=== PATIENT | male | born 1950 | race American Indian/Alaskan Native ===

== ENCOUNTER 2017-03-02 11:08 | Emergency (ER) | payer OTHER ==
[2017-03-02 11:24] VITALS: BP 144/89
[2017-03-02 11:58] LABS: Bilirubin,Urine NEG (Negative)
[2017-03-02 11:59] LABS: Blood,Urine NEG (Negative); Ketones,Urine NEG (Negative); Leukocyte Esterase,Urine NEG (Negative); Nitrite,Urine NEG (Negative); Protein,Urine <15 mg/dL mg/dL (Negative); RBC,Urine < 1.0 /HPF (0.0-6.0); Urobilinogen,Urine < 2.0 mg/dL (<2.0); WBC,Urine < 1.0 /HPF (0.0-6.0)
== END 2017-03-02 11:20 | disposition left against medical advice (07) ==
LOC: ED 11:08
DX: R07.9 Chest pain, unspecified (principal); R06.02 Shortness of breath; R51 Headache; Z53.21 Procedure and treatment not carried out due to patient leaving prior to being seen by health care provider
CPT/HCPCS: 81001; 82962; 93005; 93010